=== PATIENT | male | born 1955 | race Caucasian/White ===

== ENCOUNTER 2019-07-15 08:03 | Day surgery (SDC) | payer MEDICARE, MEDICAID ==
[~2019-07-15] VITALS: Ht 185.4 cm; Wt 82.5 kg
[2019-07-15] MEDS ORDERED: normal saline 1000ml 1,000 ML IV PRN (08:25)
[2019-07-15 08:55] VITALS: BP 133/75
[2019-07-15] MEDS ORDERED: BACL20TA PO (08:57)
[2019-07-15] MEDS ORDERED: PRAV40TA3 PO (08:57)
[2019-07-15] MEDS ORDERED: ASPI-611 PO (08:57)
[2019-07-15] MEDS ORDERED: METO50TA17 PO (08:57)
[2019-07-15] MEDS ORDERED: AMLO-94 PO (08:57)
[2019-07-15] MEDS ORDERED: AMIT-189 PO (08:57)
[2019-07-15] MEDS ORDERED: HYDR-4353 PO (08:57)
[2019-07-15] MEDS ORDERED: ZOLP5TAB2 PO (08:57)
[2019-07-15] MEDS ORDERED: FENO160T13 PO (08:57)
[2019-07-15] MEDS ORDERED: MELA3TAB64 PO (08:57)
[2019-07-15 09:35] LABS: BASOPHILS # (AUTO) 0.1 X10'3 (0-0.2); BASOPHILS % (AUTO) 1.5 % (0-1); EOSINOPHILS # (AUTO) 0.5 X10'3 (0-0.9); EOSINOPHILS % (AUTO) 8.2 % (0-6); HEMATOCRIT 47.1 % (42.0-52.0); HEMOGLOBIN 16.1 g/dl (14.0-17.9); LYMPHOCYTES # (AUTO) 1.4 X10'3 (1.1-4.8); LYMPHOCYTES % (AUTO) 23.1 % (21-51); MEAN CORPUSCULAR HEMOGLOBIN 31.1 PG (27.0-31.0); MEAN CORPUSCULAR HGB CONC 34.2 g/dL (33.0-36.5); MEAN CORPUSCULAR VOLUME 90.8 FL (78-98); MEAN PLATELET VOLUME 8.1 FL (7.4-10.4); MONOCYTES # (AUTO) 0.7 X10'3 (0-0.9); MONOCYTES % (AUTO) 11.5 % (2-12); NEUTROPHILS # (AUTO) 3.3 X10'3 (1.8-7.7); NEUTROPHILS % (AUTO) 55.7 % (42-75); PLATELET COUNT 269 X10'3 (140-440); RED BLOOD COUNT 5.18 X10'6 (4.70-6.10); RED CELL DISTRIBUTION WIDTH 13.9 % (11.5-14.5); WHITE BLOOD COUNT 5.9 X10'3 (4.5-11.0)
[2019-07-15] MEDS ORDERED: fentaNYL/PF 50MCG/1 ML 2ML syringe IV PRN (09:35)
[2019-07-15] MEDS ORDERED: LIDOcaine 1%/PF 5ML 10 MG/ML VIAL SQ ONE (09:35)
[2019-07-15] MEDS ORDERED: midazolam 2 mg/2 ml injection IV PRN (09:35)
[2019-07-15] MEDS ORDERED: midazolam 2 mg/2 ml injection ONE (09:53)
[2019-07-15] MEDS ORDERED: fentaNYL/PF 50MCG/1 ML 2ML syringe ONE (09:53)
[2019-07-15] MEDS ORDERED: normal saline 1000ml 1,000 ML IV SCH (09:56)
[2019-07-15 10:01] LABS: ALBUMIN 4.6 G/DL (3.4-5.0); ANION GAP 10 (8-16); BLOOD UREA NITROGEN 24 MG/DL (7-18); BUN/CREATININE RATIO 15.7 (5.4-32.0); CALCIUM 9.4 MG/DL (8.5-10.1); CHLORIDE 107 MMOL/L (99-107); CREATININE 1.53 MG/DL (0.60-1.10); GLUCOSE 105 MG/DL (70-104); POTASSIUM 4.5 MMOL/L (3.5-5.1); SODIUM 143 MMOL/L (135-145); TOTAL CARBON DIOXIDE 25.7 MMOL/L (24-32); eGFR 46 ML/MIN
[2019-07-15 10:10] VITALS: BP 142/88
[2019-07-15] MEDS ORDERED: iohexol 300mg/ml 100ml inj. ONE (10:13)
[2019-07-15 10:15] VITALS: BP 154/68
--- NOTE | 2019-07-15 10:40 | NUR ---
pt back in room, procedure being cancelled by Dr. Phelan. pt will reschedule. pt iv dc'd, cannula intact, no s/s of bleeding or infection, pt refused w/c to exit. pt ambulated to exit, all belongings in hand.
[2019-07-15] MEDS ORDERED: FLU VACC QS 2019-20 (6 MOS UP) 60 MCG/0.5 ML VIAL IMVAC ONE (11:40)
== END 2019-07-15 10:45 | disposition home or self-care (01) ==
LOC: SSTAY O 08:03
PROVIDERS: ATTEND Radiology Diagnostic Radiology
DX: R59.0 Localized enlarged lymph nodes (principal); R19.09 Other intra-abdominal and pelvic swelling, mass and lump; K21.9 Gastro-esophageal reflux disease without esophagitis; K74.60 Unspecified cirrhosis of liver; M19.90 Unspecified osteoarthritis, unspecified site; Z87.891 Personal history of nicotine dependence; Z88.0 Allergy status to penicillin; Z91.09 Other allergy status, other than to drugs and biological substances; Z88.1 Allergy status to other antibiotic agents; Z79.82 Long term (current) use of aspirin; Z79.899 Other long term (current) drug therapy; Z80.51 Family history of malignant neoplasm of kidney; Z80.42 Family history of malignant neoplasm of prostate; Z84.1 Family history of disorders of kidney and ureter
CPT/HCPCS: 36415; 74176; 80048; 85025; J2250; J3010; J7030; Q9967; Q2037